=== PATIENT | male | born 1960 | race Hispanic/Latino ===

== ENCOUNTER 2017-08-17 10:22 | Emergency (ER) | payer BC ==
[~2017-08-17] VITALS: Ht 167.6 cm; Wt 95.3 kg
[2017-08-17] MEDS ORDERED: NIFEDIPINE 10 MG CAP PO ONE (11:00)
[2017-08-17] MEDS ORDERED: NICARDIPINE HCL SOLN 20 MG in SODIUM CHLORIDE 0.9% 250ML 200 ML IV STA (11:04)
--- NOTE | 2017-08-17 11:18 | Diagnostic Imaging Report ---
PROCEDURE: A single AP view of the chest. COMPARISON: None. INDICATIONS: DIZZY, HEAD PAIN FINDINGS: Lines/tubes: None. Lungs: Pulmonary vascular congestion. No focal consolidation. Pleura: There is no pleural effusion or pneumothorax. Heart and mediastinum: Mild cardiomegaly. The aorta is tortuous. Bones: No acute bony abnormality. IMPRESSION: Cardiomegaly with pulmonary vascular congestion. No focal consolidation. Dictated by: Dejuan Cruz M.D. on 08/17/2017 at 11:26 Electronically approved by: Dejuan Cruz M.D. on 08/17/2017 at 11:26
[2017-08-17] MEDS ORDERED: NICARDIPINE 20MG/200ML PREMIX 200 ML ONE (11:24)
[2017-08-17 11:45] LABS: BASOPHILS # (AUTO) 0.1 (0.0-0.1); BASOPHILS % 0.5 % (0.0-1.0); EOSINOPHILS % 0.3 % (0.0-6.0); HEMATOCRIT 48.2 % (38.2-49.6); HEMOGLOBIN 17.5 g/dL (14.0-18.0); LYMPHOCYTES # (AUTO) 0.9 (1.0-3.2); LYMPHOCYTES % 9.8 % (18.0-39.1); MEAN CORPUSCULAR HEMOGLOBIN 31.9 pg (28-32); MEAN CORPUSCULAR HGB CONC 36.3 g/dL (31-35); MONOCYTES # (AUTO) 0.5 (0.2-0.8); MONOCYTES % 4.9 % (4.4-11.3); NEUTROPHILS # (AUTO) 8.1 (2.1-6.9); NEUTROPHILS % 84.1 % (38.7-80.0); PLATELET COUNT 202 x10e3/uL (140-360); RED BLOOD COUNT 5.48 x10e6/uL (4.3-5.7); RED CELL DISTRIBUTION WIDTH 12.3 % (11.7-14.4)
--- NOTE | 2017-08-17 11:51 | Diagnostic Imaging Report ---
Examination: CT BRAIN WITHOUT CONTRAST History:Slurred speech, headache, vomiting, dizziness, disorientation; hypertension. Comparison studies:None Technique: Axial images were obtained from the skull base to the vertex. Coronal and sagittal images reconstructed from the axial data. Intravenous contrast: None Findings: Scalp: No abnormalities. Bones: No fractures, blastic or lytic lesions. Brain sulci: Appropriate for age. Ventricles: Normal in size and configuration. No hydrocephalus. Extra-axial space: Small left frontal subdural hematoma, measures 6.5mm, with mild regional mass effect. There is subtle hyperdensity in the distal left sylvian fissure, concerning for subarachnoid hemorrhage. A CSF equal density 2.5 x 2.0 x 2.1 cm (superoinferior x anteroposterior x transverse dimensions) lesion in the right middle cranial fossa with mild regional mass effect. Parenchyma: A 3.4 x 5.0 x 4.2cm (superoinferior x anteroposterior x transverse dimensions) left temporal lobe with regional mass effect, effacement of the body and atrium of the left lateral ventricle and rightward midline shift of 6mm. No masses, or acute or chronic cortical based vascular insults. Sellar/suprasellar region: No abnormalities. Craniocervical junction: Patent foramen magnum. No Chiari one malformation. Incidental findings: None. Impression: 1. Acute left temporal lobe hematoma with mild (6mm) rightward midline shift and effacement of the body and atrium of the left lateral ventricle. 2. Small left frontal subdural hematoma with mild regional mass effect. 3. Questionable left sylvian fissure subarachnoid hemorrhage. 4. Incidental, right middle cranial fossa arachnoid cyst with mild regional mass effect. Dr. Ilene Palomares discussed findings and recommendations with Dr. Humphrey on 08/17/2017 at 1142 hours. Signed by: Dr. Ilene Palomares M.D. on 08/17/2017 11:47 AM
[2017-08-17 12:00] LABS: INR 0.92; PROTHROMBIN TIME 12.8 seconds (11.9-14.5)
[2017-08-17 12:01] LABS: PARTIAL THROMBOPLASTIN TIME 28.9 seconds (23.8-35.5)
[2017-08-17 12:08] LABS: ALANINE AMINOTRANSFERASE 28 IU/L (0-55); ALBUMIN 4.1 g/dL (3.5-5.0); ALBUMIN/GLOBULIN RATIO 1.3 (0.8-2.0); ALKALINE PHOSPHATASE 80 IU/L (40-150); ANION GAP 12.5 mmol/L (8-16); BLOOD UREA NITROGEN 12 mg/dL (7-26); BUN/CREATININE RATIO 13 (6-25); CALCIUM 9.1 mg/dL (8.4-10.2); CARBON DIOXIDE 27 mmol/L (22-29); CHLORIDE 102 mmol/L (98-107); CREATINE KINASE 113 IU/L (30-200); CREATININE, SERUM 0.96 mg/dL (0.72-1.25); EST GLOMERULAR FILTRATION RATE > 60 ML/MIN (60-); GLUCOSE 127 mg/dL (74-118); POTASSIUM 3.5 mmol/L (3.5-5.1); SODIUM 138 mmol/L (136-145)
[2017-08-17 12:11] VITALS: BP 167/82
[2017-08-17 12:14] LABS: TROPONIN I 0.067 ng/mL (0-0.300)
== END 2017-08-17 12:25 | disposition other institution (70) ==
LOC: ER 10:22
DX: I60.12 Nontraumatic subarachnoid hemorrhage from left middle cerebral artery (principal); I62.01 Nontraumatic acute subdural hemorrhage; G93.0 Cerebral cysts; I10 Essential (primary) hypertension
CPT/HCPCS: 36415; 70450; 71010; 80053; 82550; 82553; 84484; 85025; 85610; 85730; 93005; 99284

== ENCOUNTER 2017-10-13 09:08 | Inpatient (IN) | payer BC, OTHER ==
[~2017-10-13] VITALS: Ht 170.2 cm; Wt 83.6 kg
--- OUTSIDE RECORDS SUMMARY | 2017-10-13 09:10 | XMS REPORT ---
Author Author [facility] Address Unknown Phone Unavailable Care Team Providers [employer] Records Analyst Name Role Phone LUIS MIGUEL LINDSEY Unavailable Unavailable Problems This patient has no known problems. Allergies, Adverse Reactions, Alerts This patient has no known allergies or adverse reactions. Medications This patient has no known medications. Results Test Description Test Time Test Comments Text Results Atomic Results Result Comments CHEST SINGLE (PORTABLE) [place] [address] Patient Name: YNES LIZARRAGA MR #: [id number] : 1960 Age/Sex: 57/M Req #: [id number] Adm Physician: Ordered by: LUIS MIGUEL LINDSEY MD Report #: [id number] Location: ER Room/Bed: Procedure: [id number] DX/CHEST SINGLE (PORTABLE) Exam Date: 08/17/17 Exam Time: 1100 REPORT STATUS: Signed PROCEDURE: A single AP view of the chest. COMPARISON: None. INDICATIONS: DIZZY , HEAD PAIN FINDINGS: Lines/tubes: None. Lungs: Pulmonary vascular congestion. No focal consolidation. Pleura: There is no pleural effusion or pneumothorax. Heart and mediastinum: Mild cardiomegaly. The aorta is tortuous. Bones: No acute bony abnormality. IMPRESSION: Cardiomegaly with pulmonary vascular congestion. No focal consolidation. Dictated by: Armani Cruz M.D. on 08/17/2017 at 11:26 Electronically approved by: Armani Cruz M.D. on 08/17/2017 at 11: 26 Dictated By: ARMANI CRUZ MD Transcribed By: GRABIEL on 08/17/176 COPY TO: LUIS MIGUEL LINDSEY MD CT BRAIN WO [place] [address] Patient Name: YNES LIZARRAGA MR #: [id number] : 1960 Age/Sex: 57/M Req #: [id number] Adm Physician: Ordered by: LUIS MIGUEL LINDSEY MD Report #: [id number] Location: Room/Bed: Procedure: [id number] CT/CT BRAIN WO Exam Date: 08/17/17 Exam Time: 1056 REPORT STATUS: Signed Examination: CT BRAIN WITHOUT CONTRAST History:Slurred speech, headache, vomiting, dizziness, disorientation; hypertension. Comparison studies:None Technique: Axial images were obtained from the skull base to the vertex. Coronal and sagittal images reconstructed from the axial data. Intravenous contrast: None Findings: Scalp: No abnormalities. Bones: No fractures, blastic or lytic lesions. Brain sulci: Appropriate for age. Ventricles: Normal in size and configuration. No hydrocephalus. Extra-axial space: Small left frontal subdural hematoma, measures 6.5mm, with mild regional mass effect. There is subtle hyperdensity in the distal left sylvian fissure, concerning for subarachnoid hemorrhage. A CSF equal density 2.5 x 2.0 x 2.1 cm ( superoinferior x anteroposterior x transverse dimensions) lesion in the right middle cranial fossa with mild regional mass effect. Parenchyma: A 3.4 x 5.0 x 4.2cm (superoinferior x anteroposterior x transverse dimensions) left temporal lobe with regional mass effect, effacement of the body and atrium of the left lateral ventricle and rightward midline shift of 6mm. No masses, or acute or chronic cortical based vascular insults. Sellar/ suprasellar region: No abnormalities. Craniocervical junction: Patent foramen magnum. No Chiari one malformation. Incidental findings: None. Impression: 1. Acute left temporal lobe hematoma with mild (6mm) rightward midline shift and effacement of the body and atrium of the left lateral ventricle. 2. Small left frontal subdural hematoma with mild regional mass effect. 3. Questionable left sylvian fissure subarachnoid hemorrhage. 4. Incidental, right middle cranial fossa arachnoid cyst with mild regional mass effect. Dr. Adelia Palomares discussed findings and recommendations with Dr. Lindsey on 08/17/2017 at 1142 hours. Signed by: Dr. Adelia Palomares M.D. on 08/17/2017 11:47 AM Dictated By: ADELIA BULLARD MD [id number] Transcribed By: MICHELLE on 08/17/17 1147 COPY TO: LUIS MIGUEL LINDSEY MD
[2017-10-13] MEDS ORDERED: LISINOPRIL HCTZ PO (09:31)
[2017-10-13] MEDS ORDERED: METOPROLOL TART25 MG PO (09:31)
[2017-10-13 09:48] LABS: BASOPHILS % 0.5 % (0.0-1.0); EOSINOPHILS # (AUTO) 0.1 (0.0-0.4); HEMATOCRIT 42.3 % (38.2-49.6); HEMOGLOBIN 15.2 g/dL (14.0-18.0); MEAN CORPUSCULAR HEMOGLOBIN 31.4 pg (28-32); MEAN CORPUSCULAR HGB CONC 35.9 g/dL (31-35); MEAN CORPUSCULAR VOLUME 87.4 fL (81-99); MONOCYTES # (AUTO) 0.5 (0.2-0.8); MONOCYTES % 7.4 % (4.4-11.3); NEUTROPHILS # (AUTO) 4.7 (2.1-6.9); NEUTROPHILS % 74.9 % (38.7-80.0); PLATELET COUNT 180 x10e3/uL (140-360); RED BLOOD COUNT 4.84 x10e6/uL (4.3-5.7); RED CELL DISTRIBUTION WIDTH 12.3 % (11.7-14.4)
[2017-10-13 09:58] LABS: INR 1.08; PROTHROMBIN TIME 13.2 seconds (11.9-14.5)
[2017-10-13 09:59] LABS: PARTIAL THROMBOPLASTIN TIME 28.8 seconds (23.8-35.5)
[2017-10-13 10:08] LABS: ALANINE AMINOTRANSFERASE 16 IU/L (0-55); ALBUMIN 3.9 g/dL (3.5-5.0); ALBUMIN/GLOBULIN RATIO 1.4 (0.8-2.0); ALKALINE PHOSPHATASE 69 IU/L (40-150); ANION GAP 11.4 mmol/L (8-16); BLOOD UREA NITROGEN 10 mg/dL (7-26); BUN/CREATININE RATIO 11 (6-25); CALCIUM 8.8 mg/dL (8.4-10.2); CARBON DIOXIDE 27 mmol/L (22-29); CHLORIDE 106 mmol/L (98-107); CREATINE KINASE 101 IU/L (30-200); CREATININE, SERUM 0.95 mg/dL (0.72-1.25); EST GLOMERULAR FILTRATION RATE > 60 ML/MIN (60-); GLUCOSE 104 mg/dL (74-118); POTASSIUM 3.4 mmol/L (3.5-5.1); SODIUM 141 mmol/L (136-145)
--- NOTE | 2017-10-13 10:25 | Diagnostic Imaging Report ---
PROCEDURE: CHEST SINGLE (PORTABLE) COMPARISON: 08/17/2017. INDICATIONS: HIGH BLOOD PRESSURE FINDINGS: Lungs remain well-inflated. No focal consolidation, pleural effusion, or pneumothorax. Stable mild enlargement of the cardiac silhouette and prominence of the central pulmonary vasculature. No acute osseous abnormality. CONCLUSION: Cardiomegaly with pulmonary venous congestion, similar in degree to that noted 08/17/2017. Dictated by: Francisco Gonzales M.D. on 10/13/2017 at 10:24 Electronically approved by: Francisco Gonzales M.D. on 10/13/2017 at 10:24
--- NOTE | 2017-10-13 10:25 | Diagnostic Imaging Report ---
History:High blood pressure, headache today Comparison studies:Head CT 08/17/2017 Technique: Axial images were obtained from the skull base to the vertex. Coronal and sagittal images reconstructed from the axial data. Intravenous contrast: None Findings: Scalp/skull: No abnormalities. Extra-axial spaces: Right anterior mid cranial fossa arachnoid cyst, stable. Resolved left subdural hematoma. No fluid collections. Brain sulci: Age-appropriate. Ventricles: Age-appropriate. No hydrocephalus. Parenchyma: Hypodensity at the right karthik, without mass effect, not seen on the previous examination, related to age indeterminant lacunar infarct. Volume loss at the left mid and superior temporal gyri, secondary to previous intraparenchymal hemorrhage which has resolved. No masses, hemorrhage or acute cortical vascular insults. Sellar/suprasellar region: No abnormalities. Craniocervical junction: Patent foramen magnum. No Chiari one malformation. Incidental findings: Atherosclerotic calcifications in the carotid siphons . Impression: No acute hemorrhage. Age indeterminant right karthik lacunar infarct, not seen on previous exam Encephalomalacia of the left temporal lobe with resolved parenchymal hemorrhage. The above finding was reported and neck knowledge by silvia Acuna at 10:25 AM 10/13/2017 Signed by: DR Theron Alexander M.D. on 10/13/2017 10:21 AM
[2017-10-13] MEDS ORDERED: HYDRALAZINE HCL 20 MG/ML VIAL IV STA (10:28)
[2017-10-13] MEDS ORDERED: ASPIRIN 325 MG TAB PO ONE (10:30)
[2017-10-13 11:12] LABS: BILIRUBIN,URINE NEGATIVE (NEGATIVE); KETONES,URINE NEGATIVE (NEGATIVE); LEUKOCYTE ESTERASE ,URINE NEGATIVE (NEGATIVE); NITRITE,URINE NEGATIVE (NEGATIVE); PROTEIN,URINE DIPSTICK NEGATIVE (NEGATIVE); URINE UROBILINOGEN 0.2 mg/dL (0.2 - 1)
[2017-10-13 11:13] LABS: CLARITY,URINE CLEAR (CLEAR); COLOR,URINE YELLOW (YELLOW)
[2017-10-13 12:00] VITALS: BP 189/84
[2017-10-13] MEDS ORDERED: SODIUM CHLORIDE 0.9% 1000ML 1,000 ML IV SCH (12:07)
[2017-10-13] MEDS ORDERED: KETOROLAC TROMETHAMINE 30 MG/ML VIAL IM PRN (12:15)
[2017-10-13] MEDS ORDERED: POTASSIUM CHLORIDE 20 MEQ TAB CR PO STA (13:42)
--- NOTE | 2017-10-13 15:25 | History and Physical ---
CHIEF COMPLAINT: Uncontrolled high blood pressure along with headache and dizziness. HISTORY OF PRESENT MEDICAL ILLNESS: A 57-year-old male with past medical history of uncontrolled hypertension was admitted at [facility] this morning with above complaints. Patient was seen in my office yesterday with above complaints. Patient totally noncompliant with blood pressure medications and visits. Patient was complaining of headache, dizziness since last 2 months. Patient came to my office about 1 week back with high blood pressure. Patient was out of his blood pressure medications for last few months. I started patient on blood pressure pills. Patient came yesterday with complaint of headache, dizziness persisting; and, hence, patient was referred to ER yesterday from my office. Patient came to ER this morning. In the emergency room, patient was seen by emergency room doctor and was admitted for hypertensive urgency and CVA. At present, patient lying comfortably in bed, in no apparent distress. No chest pain, no shortness of breath. No nausea, vomiting or diarrhea. No abdominal pain. No loss of consciousness. No palpitations. No headaches at present. No hematemesis, no melena, no hematuria, no dysuria. No fever, no cough, no witnessed seizures. PAST MEDICAL HISTORY 1. Hypertension. 2. Intracranial hemorrhage in July 2017. Patient was here at [facility] ER and was transferred to [facility], for further care and treatment. MEDICATIONS 1. Lisinopril/hydrochlorothiazide 20/25 one pill daily. 2. Metoprolol tartrate 25 m p.o. b.i.d. SOCIAL HISTORY: No smoking, no alcohol, no illicit drug use. Lives with son. FAMILY HISTORY: Noncontributory. ALLERGIES: NO KNOWN DRUG ALLERGIES. REVIEW OF SYSTEMS: As per HPI. PHYSICAL EXAMINATION GENERAL: Patient is alert, awake, oriented x3, in no apparent distress, lying in bed. VITAL SIGNS: Temperature is 98. Pulse is 58 per minute. Respiratory rate is 16 per minute. Blood pressure is 160/70, was 189/96 in ER. Saturation 98%. SKIN: No cyanosis. No icterus. No pallor. HEENT: Normocephalic, atraumatic. PERRLA plus. NECK: Soft and supple. No JVD. No carotid bruit. No lymphadenopathy. LUNGS: Air entry bilaterally equal. HEART: S1 and S2. No murmur, no gallop, no rub. ABDOMEN: Soft, nontender. Bowel sounds plus. CENTRAL NERVOUS SYSTEM: Alert, awake, oriented x3. No focal deficit. EXTREMITIES: No cyanosis, no clubbing, no edema. Peripheral pulses present. No calf pain. LABS ON ADMISSION TO ER: White count 6.2, hemoglobin 15.3, hematocrit 42.3, platelets 180. Sodium 141, potassium 3.4, chloride 106, bicarb 27, BUN 10, creatinine 0.9. LFTs noted. Cardiac enzymes x1 negative. BNP is 556.9. PT 13.2, INR of 1.08, PTT 28.8. Urine is negative. Chest x-ray shows cardiomegaly with pulmonary vascular congestion. were noted from July 2017. CT head shows no acute hemorrhage, age-indeterminate right karthik lacunar infarct not seen on previous exam, encephalomalacia of left temporal lobe with resolved parenchymal hemorrhage. ASSESSMENT 1. Cerebrovascular accident, indeterminate age. 2. Hypertension, uncontrolled. 3. History of intracranial hemorrhage, likely hypertensive bleed. PLAN: Admit patient to [facility]. Neurology consultation, Dr. Elvira Meyer. Cardiology consultation, Dr. Desmond Potts. Will get echo, carotid Doppler. Patient is started on aspirin 325 mg p.o. daily. Will restart patient's home medications, lisinopril and metoprolol. EKG. Further care and treatment as per clinical course while patient in the hospital. Discussed with patient and son in detail with help of charger operator, explained them about the importance of being compliant with medications and medical visits. All questions were answered. Job#: [id number] EV
[2017-10-13 16:00] VITALS: BP 197/88
[2017-10-13] MEDS: HYDRALAZINE HCL 20 MG/ML VIAL IV PRN (18:26)
--- NOTE | 2017-10-13 19:21 | Diagnostic Imaging Report ---
History: Headache and dizziness.Uncontrolled hypertension, prior intracranial hemorrhage Comparison studies: CT head, 10/13/2017 and 08/17/2017 Technique: Sagittal T2; axial DWI, FLAIR, GRE, T2, T1, Coronal FLAIR. Intravenous contrast: None Findings: Scalp: Normal in signal . No masses . Bone marrow: Normal in signal intensity. Brain sulci: Appropriate for age. Ventricles: Normal in size . No hydrocephalus . Parenchyma: * Large left temporal hematoma demonstrating predominantly T1 and T2 hyperintensity with peripheral susceptibility effect. Adjacent subarachnoid blood are seen in the left temporal and parietal lobe sulci. A large areas restricted diffusion is noted within the hematoma (series 3 image 17), likely corresponding to clotted blood. * Old lacunar infarct in the right paramedian aspect of inferior karthik * Mild chronic small vessel ischemic changes are seen in the supratentorial white matter. * A 1.5 x 3 x 2.8 cm extra-axial cystic lesion in the anterior aspect of right middle cranial fossa with regional mass effect represents an incidental arachnoid cyst. Suprasellar region: No abnormalities. Craniocervical junction: Patent foramen magnum. No Chiari malformation . Vessels: Normal flow-voids in the arteries and sinuses. IMPRESSION: 1. Evolving late subacute intraparenchymal hematoma in the left temporal lobe, with associated areas of old subarachnoid hemorrhage. Restricted diffusion corresponding to clotted blood is seen within the hematoma. 2. Old lacunar infarct in the right inferior karthik. 3. Mild supratentorial white matter microvascular ischemic changes. 4. Right middle cranial fossa arachnoid cyst. A preliminary report was given by neuroradiology fellow Dr. Alonso at 7:16 PM on 10/13/2017. I have reviewed the images and agree with the findings in the preliminary report. Signed by: Dr. Inge David M.D. on 10/13/2017 9:32 PM
[2017-10-13] MEDS ORDERED: LISINOPRIL 20 MG TAB PO ONE (19:40)
--- NOTE | 2017-10-13 19:57 | Consultation ---
DATE OF CONSULTATION: October 13, 2017 CARDIOLOGY CONSULTATION REQUESTING PHYSICIAN: Dr. Liu. REASON FOR CONSULTATION: Hypertensive urgency. HISTORY OF PRESENT ILLNESS: This is a 57-year-old man with history of uncontrolled hypertension and prior left temporal lobe hematoma in July 2017 who was admitted with uncontrolled hypertension and headache. The patient was seen at Dr. Liu's office with these complaints. Given his hypertension and prior history, instructed to present for further evaluation. The patient is an extremely poor historian. Despite use of a firefighter type one, the patient was quite tangential in his responses. He denied chest pain or shortness of breath and reports that he has had headache for the last 2 months. On arrival in the ER, he was noted to have hypertensive urgency and age-indeterminate right karthik lacunar infarct that was new as well as insufflation of the left temporal lobe. Cardiology is consulted for management of his uncontrolled hypertension. REVIEW OF SYSTEMS: Negative except as per HPI. PAST MEDICAL HISTORY: 1. Hypertension. 2. History of extracranial hemorrhage in July 2017. PAST SURGICAL HISTORY: Denied. ALLERGIES: PLEASE SEE MAR. MEDICATIONS: Please see medication list. SOCIAL HISTORY: Denies tobacco, alcohol or illicit drugs. FAMILY HISTORY: Noncontributory. PHYSICAL EXAMINATION VITAL SIGNS: Temperature 98.9 degrees, pulse 77, respiratory rate 16, blood pressure 197/88, oxygen saturation 97% on room air. GENERAL: Awake, alert and in no acute distress. HEENT: Normocephalic, atraumatic. Pupils are equal. No scleral icterus. NECK: Supple. No thyromegaly or cervical lymphadenopathy. No carotid bruits. LUNGS: Clear to auscultation bilaterally. No wheezes or crackles. CARDIOVASCULAR: Normal rate, regular rhythm. No murmurs. Normal S1 and S2. ABDOMEN: Soft and nontender. EXTREMITIES: No edema. NEUROLOGIC: Nonfocal exam. However, the patient does not appear to be answering questions appropriately. LABORATORY DATA: WBC 6.2, hemoglobin 15.2, hematocrit 42.3, platelets 180,000, sodium 141, potassium 3.4, chloride 106, CO2 of 27, BUN 10, creatinine 0.95. BNP 557. EKG reveals sinus bradycardia, left ventricular hypertrophy with repolarization abnormality. Inferolateral ST and T-wave changes. IMPRESSION 1. Cerebrovascular accident of indeterminate age. 2. Hypertension, uncontrolled. 3. History of intracranial hemorrhage. Echocardiogram and carotid Dopplers have been ordered. We will review. The patient's blood pressure is extremely poorly controlled. Agree with hydralazine. We will increase lisinopril and add nifedipine. Thank you for this consult. We will continue to follow. Job#: [id number]
[2017-10-13] MEDS: DILTIAZEM HCL IV SCH (20:45)
[2017-10-13] MEDS: SODIUM CHLORIDE 0.9% IV SCH (20:45)
[2017-10-13 21:39] LABS: CHOL/HDL RATIO 3.8 (3.9-4.7)
[2017-10-13 22:40] VITALS: BP 134/82
[2017-10-13 22:55] VITALS: BP 128/74
[2017-10-13 23:10] VITALS: BP 143/73
[2017-10-13 23:25] VITALS: BP 128/73
[2017-10-14] VITALS (61 sets, daily range): BP systolic 103–154; BP diastolic 55–127
--- NOTE | 2017-10-14 08:22 | Diagnostic Imaging Report ---
Examination: MRA HEAD WITHOUT CONTRAST History: New infarct with areas of hemorrhage. Evaluate for arteriovenous malformation. Comparison studies: None Technique: 3-D [id number] MR angiogram of the intracranial circulation was obtained. MIP images of the arteries were isolated into anterior and posterior intracranial circulations, 180 degree projections. Sagittal and coronal MPR images, and axial source images are available for evaluation. Findings: Motion artifact. Internal carotid arteries: Patent. Anterior cerebral arteries: Patent A1 and A2 segments despite motion artifact. Middle cerebral arteries: Patent M1 and M2 segments. Vertebrobasilar circulation: Patent. Posterior cerebral arteries: Patent. Anatomical variants: Anterior communicating arteries: Patent. Posterior communicating arteries: Not visualized. Vertebral arteries:Codominant. IMPRESSION: Despite limitation, no intracranial arterial severe stenosis or occlusion or vascular malformation. Signed by: Dr. Ilene Palomares M.D. on 10/14/2017 8:18 AM
[2017-10-14] MEDS: LISINOPRIL 20 MG TAB PO SCH (08:48)
[2017-10-14] MEDS ORDERED: ASPIRIN 325 MG TAB PO SCH (09:00)
[2017-10-14] MEDS ORDERED: NIFEDIPINE CR 30 MG TAB PO SCH (09:00)
[2017-10-14] MEDS ORDERED: LISINOPRIL 20 MG TAB PO SCH (09:00)
[2017-10-14] MEDS: HYDRALAZINE HCL 20 MG/ML VIAL IV PRN (11:57)
--- NOTE | 2017-10-14 14:40 | Consultation ---
DATE OF CONSULTATION: October 13, 2017 NEUROLOGY CONSULTATION NOTE DATE OF : 1960 HISTORY OF PRESENT ILLNESS: Mr. Ngo is a 57-year-old right-hand dominant man with past medical history significant for hypertension, not adherent with treatment, who presented to the emergency center at [facility] with a 2-week history of headache and neck pain. It should be noted the patient is a poor general medical practitioner. As stated above, for the past 2 weeks, Mr. Ngo has experienced a diffuse headache and neck pain. Earlier today, October 13, 2017, the patient had his blood pressure checked and it was found to be high. The patient told his son his blood pressure was high, and his son brought him to the emergency center at [facility] for further evaluation. Upon arrival in the emergency center, the patient's blood pressure was 200/100 mmHg. Other than the diffuse headache and neck pain, Mr. Ngo endorsed no other symptoms. His general and neurological examinations were nonfocal. A CT of the brain without contrast was ordered for further evaluation of the headache. That study demonstrated an age-indeterminate right pontine lacunar infarct, as well as encephalomalacia of the left temporal lobe due to a prior intraparenchymal hemorrhage. Mr. Ngo was admitted to the hospital for further evaluation and treatment. REVIEW OF SYSTEMS: Diffuse headache, neck pain. The patient does not report a visual field or other deficit, dysarthria, aphasia, facial droop, hemiparesis, numbness or tingling, impairment of gait or balance, or dizziness. The remainder of the 12-point review of systems is negative. PAST MEDICAL HISTORY: Hypertension, prior intracerebral hemorrhage in July 2017. PAST SURGICAL HISTORY: None. PAST HOSPITALIZATIONS: Intracerebral hemorrhage July 2017, prior hospitalizations for hypertensive urgency. FAMILY HISTORY: Any significant family medical history is unknown to the patient. SOCIAL HISTORY: Mr. Ngo is single. He lives with his son and his family. The patient attended school through the 6th grade in [place]. He previously worked as a certified maintenance welder. Mr. Ngo reports potential exposure to toxic fumes while working as a certified maintenance welder. The patient does not report current or prior tobacco use. He does report drinking 1-2 beers "every once in a while". The patient does not report current or prior recreational drug use. MEDICATIONS 1. Metoprolol 25 mg by mouth twice daily. 2. Lisinopril-hydrochlorothiazide 20 and 25 mg by mouth daily. ALLERGIES: NO KNOWN DRUG ALLERGIES, NO KNOWN FOOD ALLERGIES, NO KNOWN ALLERGIES TO LATEX, NO KNOWN ALLERGIES TO CONTRAST MATERIALS. PHYSICAL EXAMINATION VITAL SIGNS: Height 5 feet 7 inches, weight 189 pounds, BMI 29.6 kg/meter squared. Blood pressure 197/88 mmHg, pulse 77, respiratory rate 16 breaths per minute. GENERAL: The patient is awake and alert, no acute distress. HEENT: Normocephalic, atraumatic. Pupils are equal, round, and reactive to light. Moist mucous membranes. NECK: Supple. No appreciable thyromegaly. No appreciable carotid bruits. CARDIOVASCULAR: S1, S2, regular rate and rhythm. No murmurs, rubs or gallops RESPIRATORY: Clear to auscultation bilaterally. No wheezes, rhonchi or rales. EXTREMITIES: No clubbing, cyanosis or edema. The posterior tibial and dorsalis pedis pulses are 2+ and symmetric. SKIN: Warm and dry. No rashes or lesions. NEUROLOGIC: Memory/attention: The patient is awake and alert and answers questions asked of him. At times, the patient's responses are tangential. Cranial nerves: Cranial nerve I--not tested. Cranial nerve II, III, IV, and --pupils are equal and round, react briskly to light (from 4 mm-2 mm), extraocular movements intact, no ptosis, no nystagmus. Cranial nerve V--sensation to light touch and pinprick is intact in the bilateral V1 through V3 distributions. Strength of the temporalis and mastoid muscles are within normal limits. Cranial nerve VII--the face is symmetric as are all facial movements. Strength is within normal limits. Cranial nerve VIII--hearing is intact to finger rub bilaterally. Cranial nerve IX, X--the soft palate elevates equally and symmetrically. Cranial nerve XII--normal strength of the bilateral sternocleidomastoid and trapezius muscles. Cranial nerve XII--the tongue protrudes midline and moves symmetrically from side to side. STRENGTH: Bulk is normal and strength is 5/5 in the bilateral deltoids, biceps, triceps, wrist flexors and extensors, finger flexors and extensors, intrinsic hand muscles, hip flexors, knee flexors and extensors, ankle dorsiflexion and plantar flexion, and intrinsic foot muscles. Tone is normal. DTRs: Deep tendon reflexes are 2+ and symmetric at the triceps, biceps, brachioradialis, patellas, and Achilles. Plantar responses are flexor bilaterally. SENSATION: Sensation is intact to light touch and pinprick in both arms and both legs. CEREBELLAR: Tzlfzh-toud-pirive and heel-ochoa maneuvers are intact without dysmetria or other impairment. Rapid alternating movements are intact. Gait: Deferred. SPEECH: The patient is Vietnamese speaking only. His speech appears normal without appreciable dysarthria or aphasia. Repetition is intact. INVOLUNTARY MOVEMENTS: None. PRONATOR DRIFT: None. LABORATORY DATA: Sodium 141, potassium 3.4, chloride 106, carbon dioxide 27, anion gap 11.4, BUN 10, creatinine 0.95. Estimated GFR greater than 60. BUN to creatinine ratio 11, glucose 104, calcium 8.8, total bilirubin 1.0. AST 16, ALT 16, alkaline phosphatase 69, creatinine kinase 101, CK-MB 2.40, troponin-I 0.041, B-natriuretic peptide 556.9, total protein 6.7, albumin 3.9, globulin 2.8, albumin to globulin ratio 1.4. A CBC with differential and platelets demonstrates a white blood cell count of 6.20 with a normal differential. The hemoglobin and hematocrit are 15.2 and 42.3 respectively. The platelet count is 180,000. PT 13.2, INR 1.08, PTT 28.8. Urinalysis is unremarkable. DIAGNOSTIC STUDIES 1. CT of the brain without contrast on October 13, 2017: Upon review of the images, there is an age indeterminate right pontine lacunar infarct. There is encephalomalacia of the left temporal lobe with resolved parenchymal hemorrhage. No area of acute hemorrhage is appreciated. 2. MRI of the brain without contrast, October 13, 2017: Upon review of the images, there is a shokjccc-tt-sdfejtg lacunar infarct in the right inferior karthik. There is a large left temporal hematoma demonstrating T1 and T2 hyperintensity with peripheral susceptibility effect. There is adjacent subarachnoid blood in the left temporal and parietal lobes sulci. Large areas of restricted diffusion likely corresponds clotted blood. There is an area of encephalomata in the right anterior temporal lobe. The aforementioned findings are compatible with the findings of the neuroradiologist. However, one area of difference is as follows: On my review of the images, particularly the GRE sequence, there appears to be areas of rfonm-uy-dhlmbpsj hemorrhage. 3. EKG, October 13, 2017: Sinus bradycardia with heart rate of 52 beats per minute. 4. Echocardiogram. Left ventricular systolic function is impaired with an estimated ejection fraction of 30% to 35%. The study demonstrates left ventricular hypertrophy, left ventricular as well as left atrial enlargement. There is no evidence of significant valvular disease. There is no evidence of pericardial effusion. 5. Bilateral carotid ultrasound on October 13, 2017: There does appear to be atherosclerotic disease without significant narrowing at the bilateral carotid bifurcations, as well as in the bilateral carotid bulbs. Flow in the bilateral vertebral arteries is antegrade. ASSESSMENT AND PLAN: Mr. Ngo is a 57-year-old zqaga-xglb-wtfbycny man with past medical history significant for hypertension (known to be nonadherent with medication), who presented to [facility] with diffuse headache and neck pain in the setting of elevated blood pressure. As part of his evaluation in the emergency center, the patient underwent a computed tomography of the brain without contrast, which demonstrated an age-indeterminate lacunar infarct in the inferior right karthik. Therefore, the patient was admitted to the hospital for further evaluation and treatment. The patient's neurological examination is nonfocal. At times, the patient's responses to questions are tangential. However, this could be due to the patient's poor medical sophistication. The patient's laboratory data and diagnostic studies have been reviewed and are documented above. In addition to the lgvzvemv-py-cflzisv lacunar infarct of the right inferior karthik, the patient was found on my review of the magnetic resonance images to have an area of ccikc-xy-jazbumbv hemorrhage in the left temporoparietal lobes. RECOMMENDATIONS 1. Treatment with aspirin will be discontinued in the setting of acute hemorrhage in the left temporoparietal region. 2. Due to the presence of acute hemorrhage, the patient's blood pressure needs to be brought under better control quickly. Therefore, Mr. Ngo will be transferred to the intensive care unit, so he may be treated with a Cardizem drip. The drip will be titrated to a goal systolic blood pressure of less than 150 mmHg. 3. An MRA of the brain without contrast will be ordered to complete the patient's stroke evaluation as well as to evaluate for arteriovenous malformation or aneurysm. 4. Other than the changes mentioned above, recommend to proceed with a complete stroke evaluation including: Lipid panel and hemoglobin A1c. As discussed above, the echocardiogram and carotid ultrasound have been performed. Final results of those studies are pending. Mr. Ngo is on cardiac telemetry so he may be monitored for cardiac arrhythmia. 5. Recommend against antiplatelet and/or anticoagulant medication for the next 10-14 days. At that time, if repeat neuroimaging demonstrates stability of the area of hemorrhage, treatment with either an antiplatelet or anticoagulant medication may be initiated. The cardiac dysfunction seen on the patient's echocardiogram may indicate the need for treatment with an anticoagulant medication. This decision will be deferred to cardiology. 6. Defer treatment of the patient's remaining medical comorbidities to the primary and other services. Thank you for this consultation. I will continue to follow this patient while he remains in the hospital. TIME SPENT: 70 minutes. Job#: [id number] CQ MTDJay
--- NOTE | 2017-10-14 17:08 | Progress Note ---
DATE: October 14, 2017 CARDIOLOGY PROGRESS NOTE SUBJECTIVE: Patient denies chest pain or shortness of breath. He was transferred to the ICU for a possible Cardizem drip. OBJECTIVE VITALS: Temperature 98.6 degrees, pulse 52, respiratory rate 18, blood pressure 154/78, and oxygen saturation 95% on room air. GENERAL: Awake and alert, in no acute distress. LUNGS: Clear to auscultation bilaterally. No wheezes or crackles. CARDIOVASCULAR: Normal rate and regular rhythm. No murmur. Normal S1 and S2. ABDOMEN: Soft and nontender. EXTREMITIES: No edema. CARDIAC MEDICATIONS 1. Nifedipine 30 mg p.o. daily. 2. Hydralazine 10 mg IV q.4h. p.r.n. 3. Lisinopril 40 mg p.o. daily. 4. Simvastatin 10 mg p.o. at bedtime. LABS: None today. TELEMETRY: Normal sinus rhythm. IMPRESSION 1. Hypertensive urgency. 2. History of intracranial hemorrhage. 3. History of nonadherence to medical therapy. RECOMMENDATIONS: Patient's blood pressure is borderline as neurology would prefer patient's systolic blood pressure to be less than 150. Continue intravenous hydralazine as needed. We will increase nifedipine to 30 mg p.o. b.i.d. Holding antiplatelet therapy per neurology recommendations. Thank you for this consult. We will continue to follow. Job#: [id number] SAK
[2017-10-14] MEDS: NIFEDIPINE CR 30 MG TAB PO SCH (17:49)
[2017-10-14] MEDS: DILTIAZEM HCL IV SCH (20:45)
[2017-10-14] MEDS: SODIUM CHLORIDE 0.9% IV SCH (20:45)
[2017-10-14] MEDS: SIMVASTATIN 20 MG TAB PO SCH (20:49)
[2017-10-15] VITALS (22 sets, daily range): BP systolic 102–155; BP diastolic 54–86
[2017-10-15] MEDS: LISINOPRIL 20 MG TAB PO SCH (09:28)
[2017-10-15] MEDS: NIFEDIPINE CR 30 MG TAB PO SCH ×2 (09:28→16:35)
[2017-10-15 09:39] LABS: BASOPHILS % 0.3 % (0.0-1.0); EOSINOPHILS # (AUTO) 0.1 (0.0-0.4); EOSINOPHILS % 1.3 % (0.0-6.0); HEMATOCRIT 45.5 % (38.2-49.6); HEMOGLOBIN 16.2 g/dL (14.0-18.0); LYMPHOCYTES # (AUTO) 1.1 (1.0-3.2); LYMPHOCYTES % 18.5 % (18.0-39.1); MEAN CORPUSCULAR HEMOGLOBIN 31.6 pg (28-32); MEAN CORPUSCULAR HGB CONC 35.6 g/dL (31-35); MEAN CORPUSCULAR VOLUME 88.7 fL (81-99); MONOCYTES # (AUTO) 0.4 (0.2-0.8); MONOCYTES % 6.4 % (4.4-11.3); NEUTROPHILS # (AUTO) 4.5 (2.1-6.9); NEUTROPHILS % 73.3 % (38.7-80.0); PLATELET COUNT 205 x10e3/uL (140-360); RED BLOOD COUNT 5.13 x10e6/uL (4.3-5.7); RED CELL DISTRIBUTION WIDTH 12.5 % (11.7-14.4)
[2017-10-15 09:51] LABS: ALANINE AMINOTRANSFERASE 12 IU/L (0-55); ALBUMIN 3.7 g/dL (3.5-5.0); ALBUMIN/GLOBULIN RATIO 1.3 (0.8-2.0); ALKALINE PHOSPHATASE 71 IU/L (40-150); ANION GAP 15.5 mmol/L (8-16); BLOOD UREA NITROGEN 16 mg/dL (7-26); BUN/CREATININE RATIO 15 (6-25); CARBON DIOXIDE 24 mmol/L (22-29); CHLORIDE 105 mmol/L (98-107); CREATININE, SERUM 1.07 mg/dL (0.72-1.25); EST GLOMERULAR FILTRATION RATE > 60 ML/MIN (60-); GLUCOSE 138 mg/dL (74-118); POTASSIUM 3.5 mmol/L (3.5-5.1); SODIUM 141 mmol/L (136-145)
--- NOTE | 2017-10-15 18:46 | Progress Note ---
DATE: October 15, 2017 CARDIOLOGY PROGRESS NOTE SUBJECTIVE: The patient denies chest pain or shortness of breath. His headache has resolved. OBJECTIVE VITAL SIGNS: Temperature 98.1 degrees, pulse 64, respiratory rate 16, blood pressure 134/68, oxygen saturation 97% on room air. GENERAL: Awake and alert, in no acute distress. LUNGS: Clear to auscultation bilaterally. No wheezes or crackles. CARDIOVASCULAR: Normal rate and regular rhythm. No murmur. Normal S1 and S2. ABDOMEN: Soft and nontender. EXTREMITIES: No edema. CARDIAC MEDICATIONS 1. Nifedipine XL 30 mg p.o. b.i.d. 2. Hydralazine 10 mg IV q.4h. p.r.n. 3. Lisinopril 40 mg p.o. daily. 4. Simvastatin 10 mg p.o. at bedtime. LABS: WBC 6.11, hemoglobin 16.2, hematocrit 45.5, platelets 205,000, sodium 141, potassium 3.5, chloride 105, CO2 of 24, BUN 16, creatinine 1.07. TELEMETRY: Normal sinus rhythm. IMPRESSION 1. Hypertensive urgency. 2. History of intracranial hemorrhage. 3. History of nonadherence to medical therapy. RECOMMENDATIONS: The patient's blood pressure is improved. Continue current cardiac medications. If he continues to have episodes of hypertension into the 150s systolic, we will further increase the Nifedipine, holding antiplatelet therapy per neurology recommendations. Thank you for this consult. We will continue to follow. Job#: [id number]
[2017-10-15] MEDS: SIMVASTATIN 20 MG TAB PO SCH (20:58)
[2017-10-16] VITALS (8 sets, daily range): BP systolic 141–183; BP diastolic 68–83
[2017-10-16] MEDS: LISINOPRIL 20 MG TAB PO SCH (08:20)
[2017-10-16] MEDS: NIFEDIPINE CR 30 MG TAB PO SCH ×2 (08:20→16:29)
[2017-10-16] MEDS: HYDRALAZINE HCL 20 MG/ML VIAL IV PRN (16:29)
[2017-10-16] MEDS ORDERED: NIFEDIPINE CR 30 MG TAB PO ONE (18:00)
[2017-10-16] MEDS: SIMVASTATIN 20 MG TAB PO SCH (20:32)
[2017-10-17] VITALS (9 sets, daily range): BP systolic 108–155; BP diastolic 64–73
--- NOTE | 2017-10-17 01:14 | Progress Note ---
DATE: October 16, 2017 CARDIOLOGY PROGRESS NOTE SUBJECTIVE: Patient denies chest pain or shortness of breath. OBJECTIVE VITAL SIGNS: Temperature 97.3 degrees, pulse 65, respiratory rate 18, blood pressure 150/71, oxygen saturation 99% on room air. GENERAL: Awake, alert, no acute distress. LUNGS: Clear to auscultation bilaterally. No wheezes or crackles. CARDIOVASCULAR: Normal rate, regular rhythm. No murmur. Normal S1/S2. ABDOMEN: Soft, nontender. EXTREMITIES: No edema. CARDIAC MEDICATIONS 1. Nifedipine 30 mg p.o. b.i.d. 2. Lisinopril 40 mg p.o. daily. 3. Simvastatin 10 mg p.o. at bedtime. LABS: None today. TELEMETRY: Sinus bradycardia. IMPRESSIONS 1. History of intracranial hemorrhage. 2. History of nonadherence to medical therapy. RECOMMENDATIONS: Patient's blood pressure is occasionally hypertensive, although for the most part, adequately controlled. Will further increase nifedipine to 60 mg q.a.m. and 30 mg q.p.m. Continue current cardiac medications. Otherwise, no antiplatelet therapy per neurology recommendations. Thank you for this consult. We will continue to follow. Job#: [id number] SOFY
[2017-10-17] MEDS: NIFEDIPINE CR 30 MG TAB PO SCH ×2 (08:34→16:43)
[2017-10-17] MEDS: LISINOPRIL 20 MG TAB PO SCH (08:34)
[2017-10-17 09:24] LABS: ALANINE AMINOTRANSFERASE 12 IU/L (0-55); ALBUMIN 3.9 g/dL (3.5-5.0); ALBUMIN/GLOBULIN RATIO 1.3 (0.8-2.0); ALKALINE PHOSPHATASE 75 IU/L (40-150); ANION GAP 12.9 mmol/L (8-16); BLOOD UREA NITROGEN 13 mg/dL (7-26); BUN/CREATININE RATIO 13 (6-25); CARBON DIOXIDE 24 mmol/L (22-29); CHLORIDE 110 mmol/L (98-107); CREATININE, SERUM 0.97 mg/dL (0.72-1.25); EST GLOMERULAR FILTRATION RATE > 60 ML/MIN (60-); GLUCOSE 145 mg/dL (74-118); POTASSIUM 3.9 mmol/L (3.5-5.1); SODIUM 143 mmol/L (136-145)
--- NOTE | 2017-10-17 13:12 | Progress Note ---
DATE: October 17, 2017 CARDIOLOGY PROGRESS NOTE SUBJECTIVE: The patient denies chest pain or shortness of breath. OBJECTIVE VITALS: Temperature 96.7 degrees, pulse 64, respiratory rate 18, blood pressure 154/70, oxygen saturation 98% on room air. GENERAL: Awake, alert and in no acute distress. LUNGS: Clear to auscultation bilaterally. No wheezes or crackles. CARDIOVASCULAR: Normal rate and regular rhythm. No murmur. Normal S1 and S2. ABDOMEN: Soft and nontender. EXTREMITIES: No edema. CARDIAC MEDICATIONS 1. Lasix 60 mg p.o. b.i.d. 2. Lisinopril 40 mg p.o. daily. 3. Simvastatin 10 mg p.o. at bedtime. LABS: Sodium 143, potassium 3.9, chloride 110, CO2 24, BUN 13, creatinine 0.97. Telemetry is normal sinus rhythm. IMPRESSION 1. Hypertension, uncontrolled. 2. History of intracranial hemorrhage. 3. History of nonadherence to medical therapy. RECOMMENDATIONS: The patient's blood pressure is not well controlled. Note, to increase nifedipine to 60 mg p.o. b.i.d. Continue current cardiac medications otherwise. If the patient's blood pressure remains uncontrolled, we will add chlorthalidone. No antiplatelet therapy per neurology. He will need repeat imaging in 2 weeks if findings are stable at that time. Can consider resuming then. Thank you for this consult. Will continue to follow. Job#: [id number] AURA
[2017-10-17] MEDS: SIMVASTATIN 20 MG TAB PO SCH (21:12)
[2017-10-18 04:00] VITALS: BP 142/73
[2017-10-18 07:53] VITALS: BP 135/63
[2017-10-18 07:55] LABS: ANION GAP 12.9 mmol/L (8-16); BLOOD UREA NITROGEN 14 mg/dL (7-26); BUN/CREATININE RATIO 15 (6-25); CALCIUM 8.6 mg/dL (8.4-10.2); CARBON DIOXIDE 24 mmol/L (22-29); CHLORIDE 107 mmol/L (98-107); CREATININE, SERUM 0.95 mg/dL (0.72-1.25); EST GLOMERULAR FILTRATION RATE > 60 ML/MIN (60-); GLUCOSE 96 mg/dL (74-118); POTASSIUM 3.9 mmol/L (3.5-5.1); SODIUM 140 mmol/L (136-145)
[2017-10-18 10:40] VITALS: BP 135/63
[2017-10-18] MEDS: NIFEDIPINE CR 30 MG TAB PO SCH (10:40)
[2017-10-18] MEDS: LISINOPRIL 20 MG TAB PO SCH (10:40)
[2017-10-18 12:30] VITALS: BP 135/63
[2017-10-18] MEDS ORDERED: LISINOPRIL10 MG PO (14:31)
[2017-10-18] MEDS ORDERED: PROCARDIA XL30 MG PO (14:32)
[2017-10-18] MEDS ORDERED: ZOCOR10 MG PO (14:32)
--- NOTE | 2017-10-18 16:16 | Progress Note ---
DATE: October 18, 2017 CARDIOLOGY PROGRESS NOTE SUBJECTIVE: Patient denies chest pain or shortness of breath. OBJECTIVE VITAL SIGNS: Temperature 97.2 degrees, pulse 64, respiratory rate 18, blood pressure 135/63, oxygen saturation 98% on room air. GENERAL: Awake, alert, in no acute distress. LUNGS: Clear to auscultation bilaterally. No wheezes or crackles. CARDIOVASCULAR: Normal rate, regular rhythm. No murmur. Normal S1 and S2. ABDOMEN: Soft, nontender. EXTREMITIES: No edema. CARDIAC MEDICATIONS 1. Nifedipine 60 mg p.o. b.i.d. 2. Lisinopril 40 mg p.o. daily. 3. Simvastatin 10 mg p.o. nightly. LABS: Sodium 140, potassium 3.9, chloride 107, CO2 24, BUN 14, creatinine 0.95. TELEMETRY: Normal sinus rhythm. IMPRESSION 1. Hypertension, improved control. 2. History of intracranial hemorrhage. 3. History of nonadherence to medical therapy. RECOMMENDATIONS: The patient's blood pressure has improved on current regimen. Continue current cardiac medications. The patient cannot be started on antiplatelet therapy per Neurology. He will need repeat imaging in 2 weeks to see if findings are stable. If they are, he can then be started on antiplatelet therapy. Please have the patient follow up with us in the office in 2 weeks. Thank you for this consult. We will continue to follow. Job#: [id number] EV
--- NOTE | 2017-10-18 21:25 | Progress Note ---
DATE: October 18, 2017 SUBJECTIVE: The patient denies chest pain or shortness of breath. OBJECTIVE (DR. GOLDMAN, PLEASE CANCEL DICTATION) Job#: [id number] GH
== END 2017-10-18 17:30 | disposition home or self-care (01) | DRG 66 ==
LOC: ER 09:08 → MED/SURG 12:21 → ICU 21:18 → MED/SURG 10-15 10:53
PROVIDERS: ADMIT Internal Medicine; ATTEND Internal Medicine
DX: I63.9 Cerebral infarction, unspecified (principal); I16.0 Hypertensive urgency; I10 Essential (primary) hypertension; Z91.19 Patient's noncompliance with other medical treatment and regimen; Z86.73 Personal history of transient ischemic attack (TIA), and cerebral infarction without residual deficits; Z91.14 Patient's other noncompliance with medication regimen
CPT/HCPCS: 36415; 70450; 70544; 70551; 71045; 80048; 80053; 80061; 81001; 82550; 82553; 82948; 83036; 83880; 84484; 85025; 85610; 85730; 93005; 93306; 93880; 99284; J0360; J7030